=== PATIENT | female | born 1970 | race Caucasian/White ===

== ENCOUNTER 2019-05-28 05:18 | Inpatient (IN) ==
[2019-05-28] MEDS ORDERED: ZOFRAN IV ONE (05:33)
[2019-05-28] MEDS ORDERED: MORPHINE IV ONE (05:33)
--- NOTE | 2019-05-28 05:48 | PROVIDER DOCUMENTATION ---
HPI-Abdominal Pain/GI Problem - General Chief Complaint: Post Op Complaint Stated Complaint: POST OP COMPLAINT Time Seen by Provider: 05/28/19 05:32 Source: patient Allergies/Adverse Reactions: Patient Allergies Allergy/AdvReac Type Severity Reaction Status Date / Time linezolid [From Zyvox] Allergy Severe ANAPHYLAXIS Verified 05/28/19 14:32 NSAIDS (Non-Steroidal AdvReac GASTRITIS Verified 05/28/19 14:32 Anti-Inflamma Home Medications: Home Medication List Medication Instructions Recorded Confirmed Last Taken Type Apixaban [Eliquis] 5 mg PO BID 05/02/16 05/28/19 05/25/19 08:00 History Biotin 10,000 mcg PO DAILY 05/02/16 05/28/19 05/26/19 08:00 History Fluoxetine HCl [Prozac] 80 mg PO DAILY 05/02/16 05/28/19 05/27/19 08:00 History Immun Glob G/Gly/Gluc/Iga 0-50 35 gm IV DIRECTED 05/02/16 05/28/19 04/29/19 10:00 History [Gammagard S-D 10 G (Iga<1) Pat] Linaclotide [Linzess] 290 mcg PO DAILY 05/02/16 05/28/19 05/27/19 08:00 History Nitrofurantoin Monohyd/M-Cryst 100 mg PO DAILY 05/02/16 05/28/19 05/27/19 08:00 History [Macrobid 100 mg Capsule] Famotidine [Pepcid] 20 mg PO BID 05/22/19 05/28/19 05/27/19 21:00 History Mirabegron [Myrbetriq] 50 mg PO DAILY 05/22/19 05/28/19 05/27/19 08:00 History Nortriptyline [Pamelor] 10 mg PO DAILY 05/22/19 05/28/19 05/27/19 08:00 History Levetiracetam [Keppra] 500 mg PO BID 05/28/19 05/28/19 05/27/19 21:00 History Oxycodone HCl/Acetaminophen 1 ea PO Q6H PRN #15 tab 05/31/19 Unknown Rx [Percocet 7.5-325 mg Tablet] Pantoprazole [Protonix] 40 mg PO DAILY@0700 #30 tab 05/31/19 Unknown Rx - History of Present Illness-ABD Nature of Presenting Problems: Presents to the with complaints of epigastric abd pain. Patient states that she has an ERCP done today for recurrent pancreatitis with Dr Sandhu yester day. She states that she was still having pain upon DC but they had already pulled her IV line so they gave her shot IM which eased it off but she stated it was not gone. She states that she went home and through the night it got increasingly worse and feels like it radiates around her whole abdomen. She states she has not been able to eat anything. She tried taking the Sulph[place] 10 that he prescribed her but it was helping. Review of Systems - Adult - REVIEW OF SYSTEMS - ADULT Constitutional: reports: see HPI. denies: fever Eyes: reports: no symptoms reported Ears, Nose, Mouth & Throat: reports: no symptoms reported Cardiovascular: reports: no symptoms reported Respiratory: reports: no symptoms reported Gastrointestinal: reports: see HPI, abdominal pain, nausea, vomiting. denies: constipation, diarrhea Genitourinary: reports: no symptoms reported Musculoskeletal: reports: no symptoms reported Integumentary: reports: no symptoms reported Neurological: reports: no symptoms reported Psychiatric: reports: no symptoms reported Endocrine: reports: no symptoms reported Hematologic/Lymphatic: reports: no symptoms reported Allergic/Immunologic: reports: no symptoms reported All Other Systems: Reviewed and Negative Past History - Adult - PAST MEDICAL HISTORY-ADULT Review of Records: reports: Old Records Reviewed Major Childhood Illnesses: reports: denies history Cardiovascular: reports: denies history Respiratory: reports: asthma Gastrointestinal: reports: GERD Obstetrical/Gynecological: reports: denies history Genitourinary: reports: denies history Musculoskeletal: reports: denies history Neurological: reports: Seizures/Epilepsy (seizures) Endocrine/Immune: reports: denies history Other Conditions: reports: denies history - PRIOR SURGERIES/PROCEDURES Surgical/Procedure History: reports: cholecystectomy, hysterectomy, tonsillectomy, other (bladder sling ) - IMMUNIZATION STATUS Childhood Immunizations: See Nurse Assessment Flu Vaccine: See Nurse Assessment - FAMILY HISTORY Family History: reviewed, not pertinent Physical Exam-General - PHYSICAL EXAM-ADULT Initial Vital Signs Reviewed: Yes - CONSTITUTIONAL General Appearance: alert, moderate distress (hyperventilating, restless in bed) - EYES Eyes: PERRL/EOMI - HEAD, EARS, NOSE, MOUTH & THROAT HENMT: normocephalic/atraumatic, moist mucous membranes - NECK Neck: supple, normal inspection - RESPIRATORY Respiratory: chest non-tender, lungs clear, normal breath sounds, no respiratory distress, no accessory muscle use, increased rate - CARDIOVASCULAR Cardiovascular: normal peripheral pulses, no murmur, tachycardia - GASTROINTESTINAL (ABDOMEN) Abdominal Exam: normal bowel sounds, soft, tenderness (mostly in the epigastic but is also in upper abdomen) - MUSCULOSKELETAL Back Exam: normal inspection Extremity: normal range of motion, non-tender, normal inspection - SKIN Integumentary: normal color, warm/dry - NEUROLOGIC Neurologic: grossly normal - PSYCHIATRIC Psych/Mental Status: oriented x 3, anxious Progress - PLAN OF CARE/RESULTS Progress/Plan/Lab Results: Vital Signs - 8 hr 05/28/19 05:25 Temperature 97.8 F Pulse Rate 114 H Respiratory Rate 20 Blood Pressure 110/67 O2 Sat by Pulse Oximetry 100 Orders Category Date Time Status ED: Urine Bedside ORDERED Care 05/28/19 05:32 Active CBC WITH ELECTRONIC DIFF [HEME] Stat Lab 05/28/19 05:32 Uncollected COMPREHENSIVE METABOLIC PANEL [CHEM] Stat Lab 05/28/19 05:32 Uncollected LIPASE [CHEM] Stat Lab 05/28/19 05:32 Uncollected TROPONIN T Stat Lab 05/28/19 05:32 Uncollected URINALYSIS W/POSS RFLX CULT [URINALYSIS] Stat Lab 05/28/19 05:32 Uncollected Morphine Med 05/28/19 05:33 Discontinued 4 mg IV NOW ONE Ondansetron [Zofran] Med 05/28/19 05:33 Discontinued 4 mg IV NOW ONE Result Diagrams: 05/30/19 06:01 05/31/19 07:05 - EKG 1 Time of EKG reading by physician:: 06:00 EKG Read and Signed by:: Lesli Couch EKG Interpretation (*Must complete 3 of following elements*): Normal Rate: 94 Rhythm: normal sinus rhythm [place]: normal QRS: normal SC Interval: normal ST Wave: normal Comments: normal ECG - CHANGE OF SHIFT REPORT (ED Provider) 1 Report Given and Care Transferred to:: Dr Couch Time of Transfer: 07:00 Items Pending: Labs, Other (pain control and dispo) Departure - Departure Date of Disposition Decision: 05/28/19 Time of Disposition Decision: 09:00 DIAGNOSIS: Pancreatitis Qualifiers: Chronicity: acute Pancreatitis type: unspecified pancreatitis type Acute pancreatitis complication: uninfected necrosis Qualified Code(s): K85.91 - Acute pancreatitis with uninfected necrosis, unspecified Disposition: ADMITTED INPATIENT 09 Certified Medical Emergency: Emergent Condition: Good - Critical Care Note This patient required my direct & personal management of CC.: No Attestation - Physician/ ARCENIO Attestation Patient care was provided by Advanced Practice Provider:: No The physician spent face to face time with patient:: Yes Advanced Practice Provider documentation review:: Supervising physician onsite and consulted in the evaluation and care of this patient. The physician did have a face to face encounter with the patient.
[2019-05-28 06:14] LABS: URINE SOURCE CLEAN CATCH
[2019-05-28 06:18] LABS: BASO# 0.01 X1000 (0.0-0.2); BASO% 0.1 % (0.0-0.8); EOS# 0.04 X1000 (0.0-0.7); EOS% 0.4 % (0.0-10.0); HEMATOCRIT 40.5 % (37.0-47.0); HEMOGLOBIN 13.3 g/dL (12.0-16.0); IMM GRAN# 0.03 X1000 (0.0-0.04); IMM GRAN% 0.3 % (0.0-0.5); LYMPH# 0.61 X1000 (1.2-3.4); LYMPH% 6.4 % (20.5-51.1); MCH 30.3 PG (27-31); MCHC 32.8 g/dL (33-37); MCV 92.3 FL (81-99); MONO# 0.87 X1000 (0.11-0.59); MONO% 9.1 % (1.7-9.3); MPV 8.8 FL (7.4-10.4); NEUT# 8.04 X1000 (1.4-6.5); NEUT% 83.7 % (42.2-75.2); PLT 357 X1000 (130-400); RBC 4.39 XMIL (4.2-5.4); RDW 13.7 % (11.5-14.5)
[2019-05-28] MEDS ORDERED: DILAUDID IV ONE ×3 (06:28→11:37)
[2019-05-28 06:40] LABS: BILIRUBIN URINE NEGATIVE (NEGATIVE); BLOOD URINE NEGATIVE (NEGATIVE); COLOR YELLOW; GLUCOSE URINE NEGATIVE (NEGATIVE); KETONE URINE NEGATIVE (NEGATIVE); LEUKOCYTES URINE NEGATIVE (NEGATIVE); NITRITE URINE NEGATIVE (NEGATIVE); PROTEIN URINE TRACE mg/dL (NEGATIVE); SP GRAVITY URINE 1.012; TURBIDITY URINE HAZY (CLEAR); UROBILINOGEN URINE NORMAL (NORMAL)
[2019-05-28 07:06] LABS: AGAP 14; ALB/GLOB RATIO 1.6; ALBUMIN 3.9 g/dL (3.5-5.0); ALKALINE PHOSPHATASE 122 U/L (32-104); BUN 7 mg/dL (8-22); CALCIUM 8.3 mg/dL (8.8-10.2); CHLORIDE 101 mmol/L (98-107); COSMO 274; CREATININE 0.7 mg/dL (0.5-0.9); ESTIMATED GFR > 60; GLUCOSE 103 mg/dL (70-104); GOT 82 U/L (10-30); GPT 48 U/L (10-36); LIPASE > 3000 U/L (13-60); POTASSIUM 3.7 mmol/L (3.5-5.1); SODIUM 138 mmol/L (136-145); TCO2 23 mmol/L (25-35); TOTAL BILIRUBIN 0.41 mg/dL (0.20-1.00); TOTAL PROTEIN 6.4 g/dL (6.3-8.3)
--- NOTE | 2019-05-28 07:22 | EKG Report ---
Test Performed on : 05/28/2019 06:00:55 AM Test Reason : epigastric pain Blood Pressure : / mmHG Vent. Rate : 094 BPM Atrial Rate : 094 BPM P-R Int : 114 ms QRS Dur : 078 ms QT Int : 396 ms P-R-T Axes : 064 008 043 degrees QTc Int : 495 ms Normal sinus rhythm. Normal ECG No previous ECGs available Unconfirmed Result
[2019-05-28 07:36] LABS: UR EPITHELIAL CELLS >10 /HPF (<10); URINE BACTERIA NEGATIVE /HPF; URINE RBC <10 /HPF (<10); URINE WBC <10 /HPF (<10)
[2019-05-28 07:55] LABS: URINE CRYSTALS NONE SEEN
[2019-05-28] MEDS ORDERED: NS 1,000 ML IV ONE (08:49)
--- NOTE | 2019-05-28 08:55 | Diag Imaging Result Doc PS360 ---
EXAM: CT ABDOMEN/PELVIS W/O CONTRAST 05/28/2019 HISTORY: post op pain TECHNIQUE: This exam was performed using automated exposure control, adjustment of mA or kV according to patient size, and/or use of iterative reconstruction technique. COMMENT: The current study is compared with 05/02/2016. There is no evidence of acute disease in the visualized portion of the chest. The adrenal glands are not enlarged. There has been cholecystectomy and there is a biliary stent in the common bile duct. There is enlargement of the pancreatic head which was not the case on the previous examination and there is some stranding in the anterior pararenal spaces particularly on the left side and around the body of the pancreas. Some infiltration of the fat in the mesentery near the hepatic flexure of the colon is present. The colon is slightly distended with some stool distally. No mucosal thickening is demonstrated. There is edema surrounding the second portion of the duodenum. Multiple small periaortic retroperitoneal nodes are demonstrated with one just below the renal pedicle measuring almost 13 mm in greatest dimension this is increased from just over 10 mm at the time the previous study. Pelvis: The appendix is normal in appearance. There is no evidence of free fluid. The urinary bladder is not distended. There is no evidence of significant adenopathy. The regional skeleton appears to be intact. IMPRESSION: Retroperitoneal changes consistent with pancreatitis. The possibility of a mass in the pancreatic head cannot be excluded, particularly on this noncontrast study, however. Further follow-up may be desirable. Electronically signed by Ronal Benedict 05/28/2019 8:52 AM
[2019-05-28] MEDS ORDERED: LR 1,000 ML IV ONE (11:49)
[2019-05-28] MEDS ORDERED: DILAUDID IV PRN (11:49)
[2019-05-28] MEDS: ZOFRAN IV PRN ×2 (12:06→21:11)
[2019-05-28] MEDS ORDERED: KEPPRA 500 MG in NS 100 ML IV ONE (13:32)
[2019-05-28] MEDS: DILAUDID IV PRN ×4 (14:21→23:56)
--- NOTE | 2019-05-28 17:25 | HISTORY AND PHYSICAL ---
PRIMARY CARE PROVIDER: Dr. Lauren Garcia PATIENT'S SENIOR HARDWARE DESIGN ENGINEER: Dr. Earl. CHIEF COMPLAINT: Severe epigastric pain after having an ERCP done yesterday. 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 Varner at [facility] in [place] as well as seizure disorder who presented to the ER today with a chief complaint of persistent epigastric pain that she rated at a 10/10 in intensity. The patient had a bout of acute pancreatitis fairly recently and underwent a ERCP yesterday. At that time, the patient was noted to have a papillary stricture and a stent was placed and a sphincterotomy was performed. The patient reports that after the procedure she was having severe epigastric pain. She was given some nausea medication and pain medication and her symptoms improved slightly and she was sent home. The patient returned this morning with worsening of her symptoms. In the ER, the patient's lipase was noted to be greater than 3000 and her liver enzymes were mildly elevated. The patient reports that she has been feeling severely nauseous but has not vomited. She reports that she has not had a bowel movement. In the ER the patient received a L of IV fluid and several doses of Dilaudid to help control the patient's persistent pain. The patient also received a dose of IV Keppra since she is unable to have anything by mouth. PAST MEDICAL HISTORY: 1. Immunoglobulin deficiency. 2. Seizure disorder. 3. Pancreatitis. 4. Gastroesophageal reflux disease 5. Left upper extremity DVT PAST SURGICAL HISTORY: 1. Partial hysterectomy. 2. Cholecystectomy. 3. Tonsillectomy. 4. Bilateral carpal tunnel release. 5. History of nephrostomy tube placement. 6. Bladder sling. FAMILY HISTORY: The patient's father has diabetes, hypertension, and his and has a history of cerebrovascular accident. ALLERGIES: Zyvox and aspirin. HOME MEDICATIONS: 1. Eliquis 5 mg oral twice a day. 2. Pepcid 20 mg p.o. twice a day. 3. Keppra 500 mg p.o. twice a day. 4. Linzess 290 mcg oral daily. 5. Myrbetriq 50 mg p.o. daily. 6. Nortriptyline 10 mg p.o. daily. 7. [place] 10/325 one tab oral every 8 hours p.r.n. 8. Prozac 80 mg p.o. daily. 9. Pepcid 20 mg p.o. twice a day. REVIEW OF SYSTEMS: A 12-point review of systems has been performed. Please refer to the history of present illness for pertinent positives and negatives. PHYSICAL EXAMINATION: VITAL SIGNS: Temperature 98.1 degrees, blood pressure 133/85, heart rate 99, respirations 18, O2 saturations 100% on room air. GENERAL: This is a middle-aged female lying on the stretcher in no acute distress. HEENT: Head normocephalic, atraumatic. SKIN: No rashes no lesions. HEART: S1, S2 normal. Regular rate and rhythm. LUNGS: Clear to auscultation bilaterally. No wheezing. No rales. No rhonchi. ABDOMEN: Diffuse tenderness mainly in the epigastric region. EXTREMITIES: No edema, no cyanosis, no calf tenderness. NEUROLOGIC: The patient is alert and oriented x4. No focal neurologic deficits noted. LABS: White blood cell count 9.6, hemoglobin 13, hematocrit 40, platelets 357. Sodium 138, potassium 3.7 chloride 101, CO2 23, BUN 7, creatinine 0.7, glucose 103, AST 82, ALT 48, alkaline phosphatase 122, lipase greater than 3000. Troponin less than 0.01. UA negative. IMAGING: CT of the abdomen and pelvis shows pancreatitis. The possibility of a mass in the pancreatic head cannot be excluded. ASSESSMENT AND PLAN: 1. Acute pancreatitis status post endoscopic retrograde cholangiopancreatography. The patient will be made NPO. We will start aggressive IV fluid hydration, antiemetics and p.r.n. pain medication. We will also consult with gastroenterology. The CT does not rule out the possibly possibility of a mass on the head of the pancreas. This will need to be further worked up once the patient is over her flare of pancreatitis. 2. Immunoglobulin deficiency. Aware. The patient is followed in [place] and receives regularly scheduled immunoglobulin infusions. 3. Seizure disorder. We will start the patient on Keppra 500 mg IV q.12. 4. Gastroesophageal reflux disease. We will start the patient on IV Protonix. cc: Karine Mcdaniels MD [facility]
[2019-05-28] MEDS: D5 LR 1,000 ML IV SCH (17:43)
[2019-05-28] MEDS: ELIQUIS PO SCH (21:11)
[2019-05-29] MEDS: KEPPRA 500 MG in NS 100 ML IV SCH ×3 (02:21→13:59)
[2019-05-29] MEDS: D5 LR 1,000 ML IV SCH (02:26)
[2019-05-29] MEDS: ZOFRAN IV PRN (03:17)
[2019-05-29] MEDS: DILAUDID IV PRN ×2 (03:17→06:26)
[2019-05-29] MEDS: PROTONIX IV SCH (07:13)
[2019-05-29 07:15] LABS: HEMATOCRIT 36.3 % (37.0-47.0); HEMOGLOBIN 11.7 g/dL (12.0-16.0); MCH 30.7 PG (27-31); MCHC 32.2 g/dL (33-37); MCV 95.3 FL (81-99); MPV 8.9 FL (7.4-10.4); RBC 3.81 XMIL (4.2-5.4); RDW 14.4 % (11.5-14.5); WBC 9.82 X1000 (4.8-10.8)
[2019-05-29 07:20] LABS: AGAP 10; ALB/GLOB RATIO 1.1; ALBUMIN 3.4 g/dL (3.5-5.0); ALKALINE PHOSPHATASE 127 U/L (32-104); BUN 6 mg/dL (8-22); CALCIUM 8.3 mg/dL (8.8-10.2); CHLORIDE 101 mmol/L (98-107); COSMO 267; CREATININE 0.6 mg/dL (0.5-0.9); ESTIMATED GFR > 60; GLUCOSE 92 mg/dL (70-104); GOT 56 U/L (10-30); GPT 69 U/L (10-36); POTASSIUM 3.6 mmol/L (3.5-5.1); SODIUM 135 mmol/L (136-145); TCO2 24 mmol/L (25-35); TOTAL BILIRUBIN 0.34 mg/dL (0.20-1.00); TOTAL PROTEIN 6.6 g/dL (6.3-8.3)
[2019-05-29 07:29] LABS: LIPASE 1582 U/L (13-60)
[2019-05-29] MEDS ORDERED: PROZAC PO SCH (09:00)
[2019-05-29] MEDS: PAMELOR PO SCH (09:17)
[2019-05-29] MEDS: LINZESS PO SCH (09:17)
[2019-05-29] MEDS: ELIQUIS PO SCH ×2 (09:17→20:05)
[2019-05-29] MEDS: MYRBETRIQ E.R. PO SCH (09:19)
[2019-05-29] MEDS: DEMEROL IV PRN ×6 (09:43→22:55)
[2019-05-29] MEDS: BENADRYL IV PRN ×2 (09:43→18:11)
[2019-05-29] MEDS: NS 1,000 ML IV SCH ×2 (09:50→16:47)
--- NOTE | 2019-05-29 10:29 | PROGRESS NOTE ---
DATE: 05/29/2019 SUBJECTIVE: The patient complains of redness and itching all over that started last night. She also states that she is still having epigastric pain and is requiring pain medication every 3 hours. OBJECTIVE: Vital Signs: Temperature 98.5 degrees, blood pressure 110/66, heart rate 99, respirations 15, O2 saturation 100% on room air. General: This is an overweight female lying in bed in no acute distress. Heart: S1, S2 normal. Regular rate and rhythm. Lungs: Clear to auscultation bilaterally. No wheezing. No rales. No rhonchi. Abdomen: Positive bowel sounds. Soft, nontender, nondistended. Extremities: No edema, no cyanosis. Neurologic: The patient is alert and oriented x3. LABS: Sodium 135, potassium 3.6, chloride 101, CO2 24, BUN 6, creatinine 0.6, glucose 92. Hemoglobin 11, hematocrit 36, platelets 307,000. Lipase 1582. ASSESSMENT AND PLAN: 1. Acute pancreatitis status post endoscopic retrograde cholangiopancreatography (ERCP). Slowly improving. Continue with IV fluids, antiemetics and p.r.n. pain medication. Further recommendations as per the GI specialist. 2. Immunoglobulin deficiency. Aware. 3. Seizure disorder. Continue on Keppra. 4. Chronic constipation. Continue on the current bowel regimen. 5. Deep vein thrombosis prophylaxis. The patient is currently on Eliquis. cc: Karine Mcdaniels MD
--- NOTE | 2019-05-29 12:19 | GASTROENTEROLOGY CONSULTATION ---
DATE: 05/29/2019 REASON FOR CONSULT: Epigastric pain S/P ERCP. HISTORY OF PRESENT ILLNESS: Ms. Reid is a 49-year-old female with the history of Common Variable Immune Deficiency and is seen by Dr. Varner at [facility] in [place], and also has seizure disorders. She came to the ER with a complaint of epigastric pain, rated it as 10/10 and described it as sharp stabbing pain. The patient had an ERCP done on Sunday with stent placement. She complained of abdominal pain after the stent placement, mainly in the epigastric area, and she returned back to the ER on Sunday morning, complaining of worsening symptoms. Her lipase on 05/28/2019 was greater than 3000, total bilirubin was 0.41, AST 82, ALT 48, alkaline phosphatase 122. She also complained of shortness of breath, along with abdominal pain, nausea, but denied any vomiting. PAST MEDICAL HISTORY: CVID, seizure disorder, pancreatitis, GERD, and constipation. PAST SURGICAL HISTORY: Partial hysterectomy, cholecystectomy, tonsillectomy, carpal tunnel release bilaterally, history of nephrostomy tube placement, and bladder sling, EGD and colonoscopy, ERCP. FAMILY HISTORY: Dad has history of hypertension and CVA. ALLERGIES: She is allergic to Zyvox and aspirin, mainly all the NSAID products. HOME MEDICATIONS: Macrobid 100 mg daily, Biotin 10,000 mcg daily, Prozac 80 mg daily, Linzess 290 mcg daily, immunoglobulin, Gammagard S/D 35 grams IV as directed, Eliquis 5 mg twice a day, Pepcid 20 mg twice a day, nortriptyline 10 mg daily, mirabegron 50 mg p.o. daily, hydrocodone/acetaminophen 10/325 one tablet every 8 hours as needed, and Keppra 500 mg twice a day. SOCIAL HISTORY: She is and lives with her . Denied any alcohol, tobacco or drug use. REVIEW OF SYSTEMS: As per HPI. Otherwise, 12-point review of systems is negative. PHYSICAL EXAMINATION: Vital Signs: Temperature 98.5, heart rate 99, respirations 15, blood pressure 110/66, she is 100% on room air. Her weight is 155 pounds, BMI is 27.5 kg/m2. General: She is alert, oriented x3, answering all questions appropriately, and in no acute distress. HEENT: Pale conjunctivae. No icterus. PERRL. Neck: Supple. Lungs: Clear to auscultation in the anterior calle. Cardiovascular: The patient is tachycardic. Abdomen: Mildly distended. Tender in the epigastric area. Soft. Active bowel sounds heard in all 4 quadrants. Extremities: No clubbing, no cyanosis, no edema. Pedal pulses 2+ present bilaterally. Neurological: Alert, oriented x3. Nonfocal. Cranial nerves II through XII grossly intact. IMAGING AND LABORATORY DATA: WBCs 9.82, RBCs 3.81, hemoglobin 11.7, hematocrit is 36.3, platelet count 307,000. Sodium 135, potassium 3.6, chloride 101, carbon dioxide 24, anion gap 10, BUN 9, creatinine 0.6, glucose 92, calcium 8.3. Total bilirubin 0.24, AST is 56, ALT is 69, alkaline phosphatase is 127, albumin 3.4, lipase is 1582. Urinalysis showed trace of protein. CT of the abdomen and pelvis showed retroperitoneal changes consistent with pancreatitis. Possibility of a mass in the pancreatic head cannot be excluded. IMPRESSION AND PLAN: S/P ERCP which showed papillary stenosis s/p CBD stent placement. Post ERCP Pancreatitis Epigastric abdominal pain CVID Constipation Elevated LFT's Seizure disorder PLAN: CT scan report showed pancreatitis but mass could not be ruled out. We plan to send the patient to [facility] to do an outpatient endoscopic ultrasound in 4-[address] Oakes. Patient is receiving IV fluids normal saline 150 ml/hr, IV pain control, IV Protonix 40 mg BID, MiraLAX twice a day, Dulcolax 10 mg HS. We will continue her Linzess 290 mg daily. Patient is on a clear liquid diet, will advance as tolerated. Her lipase on admission was > 3000 and today it is 1582, it has trended downwards. Her AST was 256, ALT was 69, and alkaline phosphatase is 129. We will continue to monitor her CBC, BMP and follow the plan of care per PCP. This plan was discussed with Dr. Earl. Thank you for your consult, and please call us for any further questions or concerns. Dictated by OSCAR Rizo for Steve Earl MD cc: Steve Earl MD I have seen and examined the patient myself. I agree with the above plan of care. The above plan of care was discussed with the patient and her at bedside and all questions were answered. Please call us with any further questions. ALLIE
[2019-05-29] MEDS: PERCOCET-5 PO PRN ×3 (14:23→22:09)
[2019-05-29] MEDS: DULCOLAX PO SCH (20:05)
[2019-05-29] MEDS: MIRALAX PO SCH (20:08)
[2019-05-29] MEDS ORDERED: METAMUCIL POWDER PACKET PO SCH (21:00)
[2019-05-30] MEDS: DEMEROL IV PRN ×3 (02:02→10:02)
[2019-05-30] MEDS: KEPPRA 500 MG in NS 100 ML IV SCH ×2 (02:02→16:34)
[2019-05-30] MEDS: NS 1,000 ML IV SCH ×4 (02:21→20:54)
[2019-05-30] MEDS: BENADRYL IV PRN (02:21)
[2019-05-30] MEDS: PERCOCET-5 PO PRN ×5 (03:01→20:52)
[2019-05-30] MEDS: ZOFRAN IV PRN (03:05)
[2019-05-30] MEDS: PROTONIX IV SCH (06:24)
[2019-05-30] MEDS: SODIUM CHLORIDE 0.9% INJ SCH (06:24)
[2019-05-30 06:31] LABS: HEMATOCRIT 33.1 % (37.0-47.0); HEMOGLOBIN 10.5 g/dL (12.0-16.0); MCH 30.8 PG (27-31); MCHC 31.7 g/dL (33-37); MCV 97.1 FL (81-99); MPV 8.8 FL (7.4-10.4); RBC 3.41 XMIL (4.2-5.4); WBC 10.4 X1000 (4.8-10.8)
[2019-05-30 07:50] LABS: AGAP 12; ALB/GLOB RATIO 1.1; ALBUMIN 3.1 g/dL (3.5-5.0); ALKALINE PHOSPHATASE 108 U/L (32-104); BUN 3 mg/dL (8-22); CALCIUM 7.8 mg/dL (8.8-10.2); CHLORIDE 103 mmol/L (98-107); COSMO 268; CREATININE 0.5 mg/dL (0.5-0.9); ESTIMATED GFR > 60; GLUCOSE 81 mg/dL (70-104); GOT 28 U/L (10-30); GPT 42 U/L (10-36); LIPASE 511 U/L (13-60); POTASSIUM 3.8 mmol/L (3.5-5.1); SODIUM 136 mmol/L (136-145); TCO2 21 mmol/L (25-35); TOTAL BILIRUBIN 0.36 mg/dL (0.20-1.00)
[2019-05-30] MEDS: MYRBETRIQ E.R. PO SCH (10:06)
[2019-05-30] MEDS: PAMELOR PO SCH (10:07)
[2019-05-30] MEDS: LINZESS PO SCH (10:07)
[2019-05-30] MEDS: ELIQUIS PO SCH ×2 (10:08→20:52)
[2019-05-30] MEDS: MIRALAX PO SCH ×3 (10:08→20:54)
--- NOTE | 2019-05-30 15:53 | GASTROENTEROLOGY PROGRESS NOTE ---
DATE: 05/30/2019 SUBJECTIVE: Ms. Reid 49 year old female resting in bed, family at the bedside She denied any vomiting, but still has nausea and mild abdominal tenderness in the mid epigastric area. She denied having any bowel movements today. OBJECTIVE: Vital Signs: Temp 98.1 degrees, pulse 88, respirations 20, blood pressure 119/39, oxygen saturation 100% on room air is the patient's weight is 155 pounds. BMI is 27.5 kg/m2. General: She is alert, oriented x3, and in no acute distress. HEENT: Pale conjunctivae. No icterus. PERRL. Neck: Supple. Lungs: Clear to auscultation in the anterior calle. Cardiovascular: Regular rate and rhythm. Abdomen: Soft, mildly distended, tender in the mid epigastric area. Active bowel sounds heard in all 4 quadrants. Extremities: No clubbing, no cyanosis, no edema. Pedal pulses 2+ present bilaterally. Neurologic: Alert, oriented x3. LABORATORY DATA: WBCs 10.40, RBC 3.41, hemoglobin is 10.5, hematocrit is 33.1, platelet count is 274,000. Sodium is 136, potassium 3.8, chloride 103, carbon dioxide 21, anion gap 12, BUN 3, creatinine 0.5, glucose 81, calcium 7.8, total bilirubin 0.36, AST 28, ALT 42, alkaline phos 108, total protein 6.0, albumin 3.1, lipase 511. IMPRESSION AND PLAN: S/P ERCP which showed papillary stenosis s/p CBD stent placement. Post ERCP Pancreatitis Epigastric abdominal pain CVID Constipation Elevated LFT's Seizure disorder PLAN:. We will continue to follow the current plan of care and treat the patient therapeutically. The patient is receiving IV fluids normal saline at 150 mL/hour. She is on GI prophylaxis Protonix 40 mg daily. For her bowel regimen, she is on Linzess 290 mcg daily, Dulcolax 10 mg PO at bedtime and MiraLAX 17 grams PO twice a day. The patient is on antiemetic, Zofran 4 mg every 4 hours as needed for nausea. She is receiving Keppra for seizures. We plan to send the patient to [facility] for an outpatient endoscopic ultrasound in 4 to [address] Oakes. The patient's liver function test today was AST 28, ALT 42, and alkaline phos 108. It has been trending downwards. Her lipase is 511, which has trended downwards. The patient is currently on clear liquid diet with Ensure for her nutrition. Patient will followup with Dr. Mcelroy outpatient for removal of stent in 6 to 8 weeks. We will continue to monitor her CBC, BMP and follow the plan of care per PCP. This plan was discussed with Dr. Long. Please call us for any further questions or concerns. Dictated by OSCAR Rizo for Jair Long MD Physician Attestation I have seen and examined the patient. I have discussed and reviewed the the note by Reanna MOORE and agree with findings and plan as documented. In brief, Ms. Coco Reid is a 49 year old woman who presents with post-ERCP pancreatitis. She continues to have pain that is slowly improving. Continue clear liquids and advance to low fat diet as tolerated. Continue IVFs and analgesics. She will need stent removal in 4-6 weeks. Continue bowel regimen. I suspect that her initial pancreatitis was from passing a stone as her symptoms resolved and LFTs normalized prior to ERCP. Dr. Earl is planning on referring for diagnostic EUS in several weeks to confirm absence of biliary/pancreatic pathology. Will follow with you. ALLIE
--- NOTE | 2019-05-30 19:02 | PROGRESS NOTE ---
DATE: 05/30/2019 SUBJECTIVE: The patient is resting quietly. OBJECTIVE: Vital Signs: Temperature 98.1 degrees, blood pressure 113/67, heart rate 90, respirations 20, O2 saturation is 100% on room air. General: This is a middle- aged female lying in bed in no acute distress. Heart: S1, S2 normal. Regular rate and rhythm. Lungs: Equal air entry bilaterally. No wheezing. No rales. Abdomen: Positive bowel sounds. Soft. Positive for epigastric tenderness. Extremities: No edema, no cyanosis. Neurologic: The patient is alert and oriented x3. LABORATORY DATA: Hemoglobin 10, hematocrit 33, platelets 274,000. Sodium 136, potassium 3.8, chloride 103, CO2 is 21, BUN 3, creatinine 0.5, glucose 81. ASSESSMENT AND PLAN: 1. Acute pancreatitis, status post endoscopic retrograde cholangiopancreatography. Slowly improving. The lipase is trending downward. The patient is currently on a clear liquid diet. We will continue to monitor closely. Gastroenterology is following. 2. Chronic constipation. Continue on the current bowel regimen. 3. Immunoglobulin deficiency. Aware. 4. Seizure disorder. Continue on Keppra. 5. Left upper extremity DVT. Continue on Eliquis. cc: Karine Mcdaniels MD [facility]TD[facility]
[2019-05-30] MEDS: DULCOLAX PO SCH (20:52)
[2019-05-31] MEDS: PERCOCET-5 PO PRN ×4 (01:15→14:43)
[2019-05-31] MEDS: KEPPRA 500 MG in NS 100 ML IV SCH ×2 (01:46→14:45)
[2019-05-31] MEDS: NS 1,000 ML IV SCH ×2 (01:46→14:46)
[2019-05-31] MEDS: SODIUM CHLORIDE 0.9% INJ SCH (06:05)
[2019-05-31] MEDS: PROTONIX IV SCH (06:05)
[2019-05-31 08:06] LABS: AGAP 13; ALB/GLOB RATIO 1.1; ALBUMIN 2.9 g/dL (3.5-5.0); ALKALINE PHOSPHATASE 101 U/L (32-104); BUN 3 mg/dL (8-22); CALCIUM 7.5 mg/dL (8.8-10.2); CHLORIDE 106 mmol/L (98-107); COSMO 275; CREATININE 0.4 mg/dL (0.5-0.9); ESTIMATED GFR > 60; GLUCOSE 86 mg/dL (70-104); GOT 16 U/L (10-30); GPT 28 U/L (10-36); POTASSIUM 3.4 mmol/L (3.5-5.1); SODIUM 140 mmol/L (136-145); TCO2 21 mmol/L (25-35); TOTAL BILIRUBIN 0.28 mg/dL (0.20-1.00); TOTAL PROTEIN 5.5 g/dL (6.3-8.3)
[2019-05-31] MEDS ORDERED: KLOR-CON PO ONE (08:15)
[2019-05-31] MEDS: LINZESS PO SCH (10:04)
[2019-05-31] MEDS: MYRBETRIQ E.R. PO SCH (10:04)
[2019-05-31] MEDS: PAMELOR PO SCH (10:05)
[2019-05-31] MEDS: ELIQUIS PO SCH (10:11)
[2019-05-31 11:07] VITALS: BP 110/69
[2019-05-31] MEDS: MIRALAX PO SCH (13:42)
--- NOTE | 2019-06-08 11:44 | DISCHARGE SUMMARY ---
ADMISSION DATE: 05/28/2019 DISCHARGE DATE: 05/31/2019 FINAL DISCHARGE DIAGNOSES: 1. Acute pancreatitis, status post endoscopic retrograde cholangiopancreatography. 2. Chronic constipation. 3. Immunoglobulin deficiency. 4. Seizure disorder. 5. Left upper extremity deep venous thrombosis, on anticoagulation. CONSULTATIONS: GI consultation with Dr. Earl. IMAGING: CT of the abdomen and pelvis, which revealed pancreatitis and the possibility of a mass in the pancreatic head. HOSPITAL COURSE: Ms. Reid is a 49-year-old female with a history of multiple medical problems, who presented to the ER with severe epigastric pain. In the ER, the patient underwent a CT of the abdomen and pelvis that revealed pancreatitis as well as the possibility of a mass at the head of the pancreas. The patient was also noted to have a lipase of greater than 3000. The patient was admitted to the Hospitalist Service, and Dr. Earl, the patient's outpatient traveling buyer, was consulted. The patient was made n.p.o. and started on aggressive IV fluid hydration. The patient was also started on pain medication and antiemetics. Over the course of the hospitalization, the patient's abdominal pain improved with bowel rest. The patient's diet was slowly advanced during the hospitalization. The patient was informed that she would likely be referred to [facility] by the traveling buyer, to possibly have an endoscopic ultrasound to have a better look at her pancreas given the possibility of a mass on the pancreas. Those arrangements are going to be made by Dr. Earl's office. The patient's diet was slowly advanced, and she tolerated it without any difficulty. The patient continued to improve clinically, and was ultimately cleared for discharge on 05/31/2019. DISCHARGE MEDICATIONS: 1. Eliquis 5 mg oral twice a day. 2. Biotin 10,000 mcg oral daily. 3. Pepcid 20 mg p.o. twice a day. 4. Prozac 80 mg p.o. daily. 5. Keppra 500 mg oral twice a day. 6. Linzess 290 mcg oral daily. 7. Myrbetriq 50 mg oral daily. 8. Percocet 7.5/325 one tablet oral every 6 hours p.r.n. 9. Nortriptyline 10 mg oral daily. DISCHARGE DIET: Low-fat diet. ACTIVITY: As tolerated. FOLLOWUP INSTRUCTIONS: The patient was advised to call Dr. Earl's office on 06/02/2019 to arrange a followup appointment to discuss referral to [facility] to undergo an EUS to further assess the pancreas. The patient was provided with Dr. Earl's office number. The patient will also need to follow up with Dr. Lauren Mckinney in 1 week. cc: MD Steve Carrillo MD Ashley Burchfield, MD
== END 2019-05-31 15:18 | disposition home or self-care (01) | DRG 862 ==
LOC: ED 05:18 → 4N 05:19 → EDIPHOLD 12:42 → 4N 13:44
PROVIDERS: ATTEND Internal Medicine